=== PATIENT | female | born 1980 | race Caucasian/White ===

== ENCOUNTER 2024-05-06 17:48 | Emergency (ER) | payer SELFPAY ==
[~2024-05-06] VITALS: Ht 144.8 cm; Wt 62.6 kg
[2024-05-06 17:50] VITALS: BP_SYST 139; PULSE 89; RESP 18; TEMP 97.8; O2SAT 96
[2024-05-06] MEDS: KETOROLAC TROMETHAMINE 60 MG/2 ML VIAL IM ONE (19:35)
[2024-05-06] MEDS: LIDOCAINE PATCH 5% 1 EA TP ONE (19:43)
[2024-05-06] MEDS ORDERED: LIDO30CR TP (20:16)
[2024-05-06] MEDS ORDERED: IBUP-1969 PO (20:16)
[2024-05-06 20:23] VITALS: BP_SYST 139; PULSE 89; RESP 18; TEMP 97.8; O2SAT 96
== END 2024-05-06 20:30 | disposition home or self-care (01) ==
LOC: SED 17:48
DX: S30.0XXA Contusion of lower back and pelvis, initial encounter (principal); Z91.040 Latex allergy status; Z88.8 Allergy status to other drugs, medicaments and biological substances; X58.XXXA Exposure to other specified factors, initial encounter; Y93.89 Activity, other specified; Y92.89 Other specified places as the place of occurrence of the external cause; Y99.8 Other external cause status
CPT/HCPCS: 99283; 72100; 96372; J1885

== ENCOUNTER 2024-05-11 06:51 | Emergency (ER) | payer OTHER ==
[~2024-05-11] VITALS: Ht 144.8 cm; Wt 62.6 kg
[~2024-05-11 06:51] MED LIST: IBUP-1969 PO; LIDO30CR TP
[2024-05-11 07:12] VITALS: BP_SYST 137; PULSE 83; RESP 16; TEMP 96.9; O2SAT 97
[2024-05-11] MEDS ORDERED: PRED50TA PO (07:20)
[2024-05-11] MEDS ORDERED: TRAM50TA2 PO (07:20)
[2024-05-11] MEDS: predniSONE 20 MG TABLET PO ONE (07:33)
[2024-05-11] MEDS: MORPHINE 4 MG INJ. 4 MG/ML VIAL IVP ONE (07:34)
[2024-05-11] MEDS: KETAMINE HCL IN 0.9 % NACL 50 MG/5 ML SYRINGE IVP ONE (07:39)
[2024-05-11 08:13] VITALS: BP_SYST 128; PULSE 81; RESP 18; TEMP 97.8; O2SAT 97
== END 2024-05-11 08:17 | disposition home or self-care (01) ==
LOC: SED 06:51
DX: M54.16 Radiculopathy, lumbar region (principal); Z91.040 Latex allergy status; Z88.8 Allergy status to other drugs, medicaments and biological substances; Z79.899 Other long term (current) drug therapy; Z79.2 Long term (current) use of antibiotics
CPT/HCPCS: 99284; 96372; J7512; J2270